=== PATIENT | male | born 1970 | race African-American/Black ===

== ENCOUNTER 2017-01-19 07:19 | Inpatient (IN) | payer BC, OTHER ==
[~2017-01-19] VITALS: Ht 182.9 cm; Wt 113.4 kg
--- NOTE | ~2017-01-19 | 2DMMODE ---
[facility] [address] [place] [address] 2 D/M-MODE ECHOCARDIOGRAM Name: LUPE ESCOTOJEAN CLAUDE Room #: 428-P ADM IN M.R.#: [id number] Admission: 01/19/17 Attend Phys: Tirso Andrade MD Discharge: Date of : 70 Date of Service: 01/19/17 1826 Report #: [id number] THIS REPORT FOR: //name// APPROVED REPORT Study performed: 01/19/2017 12:04:20 EXAM: Comprehensive 2D, Doppler, and color-flow Echocardiogram Patient Location: Echo lab Room #: 428 Status: routine Other Information Study Quality: Adequate Indications Altered mental status. Hx: Corral Palsy, DM, HTN 2D Dimensions RVDd: 36.73 mm LVEF(%): 65.00 (>50%) IVSd: 12.66 (7-11mm) LVOT Diam: 24.61 (18-24mm) LVDd: 41.45 mm PWd: 12.10 (7-11mm) LVDs: 26.86 (25-40mm) Aortic Root: 37.32 mm Suárez's LVEF: 65.00 % Volumes Left Atrial Volume (Systole) Single Plane 4CH: 37.91 mL Single Plane 2CH: 40.78 mL LA ESV Index: 19.00 mL/m2 Aortic Valve AoV Peak Kike.: 1.30 m/s AO Peak Gr.: 6.77 mmHg LVOT Max P.04 mmHg LVOT Max V: 1.23 m/s SARABJIT Vmax: 4.49 cm2 Mitral Valve E/A Ratio: 0.7 MV Decel. Time: 346.69 ms MV E Max Kike.: 0.53 m/s MV A Kike.: 0.72 m/s MV PHT: 100.54 ms [facility] [place] [address] 2 D/M-MODE ECHOCARDIOGRAM Name: REYNA ESCOTO Room #: 428-P [facility] IN .R.#: [id number] Admission: 01/19/17 Attend Phys: Tirso Andrade MD Discharge: Date of : 70 Date of Service: 01/19/17 1826 Report #: [id number] Pulmonary Valve PV Peak Kike.: 0.82 m/s PV Peak Gr.: 2.68 mmHg Pulmonary Vein P Vein S: 1.04 m/s P Vein A: 0.47 m/s P Vein D: 0.44 m/s P Vein A Dur.: 86.5 msec P Vein S/D Ratio: 2.36 Tricuspid Valve TR Peak Kike.: 1.97 m/s RAP Estimate: 5.00 mmHg TR Peak Gr.: 15.45 mmHg PA Pressure: 20.00 mmHg Left Ventricle The left ventricle is normal size. There is normal LV segmental wall motion. Mild concentric left ventricular hypertrophy. Left ventricular systolic function is normal. LVEF is 65%. Mild diastolic dysfunction is present (impaired relaxation pattern). Right Ventricle The right ventricle is normal size. The right ventricular systolic function is normal. Atria The left atrium size is normal. The right atrium size is normal. Aortic Valve The aortic valve is trileaflet Mild aortic regurgitation. There is no aortic valvular stenosis. Mitral Valve The mitral valve is normal in structure. No mitral regurgitation. Tricuspid Valve The tricuspid valve is normal in structure. There is mild tricuspid regurgitation. The right atrial pressure is estimated at 5 mmHg. Estimated PAP is 20mmHg. Pulmonic Valve The pulmonary valve is normal in structure. Mild pulmonic regurgitation. Great Vessels Aortic root is dilated at 4.1cm. The ascending aorta is normal in [facility] [address] [place] [address] 2 D/M-MODE ECHOCARDIOGRAM Name: REYNA ESCOTO Room #: 428-P ADM IN [facility]#: [id number] Admission: 01/19/17 Attend Phys: Tirso Andrade MD Discharge: Date of : 70 Date of Service: 01/19/17 1826 Report #: [id number] size. IVC is normal in size and collapses >50% with inspiration. Pericardium There is no pericardial effusion. <Conclusion> Left ventricular systolic function is normal. There is normal LV segmental wall motion. Mild LVH LVEF is 65%. Mild diastolic dysfunction is present (impaired relaxation pattern). The aortic valve is trileaflet Mild aortic regurgitation, no stenosis. The mitral valve is normal in structure. No mitral regurgitation. Pulmonary artery pressure could not be reliably ascertained There is no pericardial effusion. <ELECTRONICALLY SIGNED> By: Jamal Armstrong MD, FACC 01/19/171825 25 25 Jamal Armstrong MD, FACC /INF
--- NOTE | ~2017-01-19 | EKG ---
[place] [address] [facility] [place] [address] ELECTROCARDIOGRAM REPORT Name: REYNA ESCOTO Room #: 428-P ADM IN M.R.#: [id number] Admission: 01/19/17 Attend Phys: Tirso Andrade MD Discharge: Date of : 70 Report #: [id number] THIS REPORT FOR: //name// [facility] ED Test Date: 2017-01-19 Test Time: 07:38:11 Pat Name: REYNA ESCOTO Department: Room: [facility] Gender: M Director Of Vital Statistics: Trinidad LORENZO : 1970 Requested By: Chandu Guzman Order Number: [id number] MD: Jamal Armstrong Measurements Intervals [place] Rate: 76 P: 37 GA: 152 QRS: -12 QRSD: 83 T: 201 QT: 412 QTc: 464 Interpretive Statements Sinus rhythm Abnormal R-wave progression, early transition Abnormal T, consider ischemia, lateral leads No previous ECG available for comparison Electronically Signed On 01-20-2017 9:09:17 CDT by Jamal Armstrong [email or web address] <ELECTRONICALLY SIGNED> By: Jamal Armstrong MD, [facility] 01/20/17908 7 Jamal Armstrong MD, [facility] /EPI
[2017-01-19 07:23] VITALS: BP 92/54
[2017-01-19 08:21] LABS: HEMATOCRIT 44.6 % (42.0-52.0); HEMOGLOBIN 15.4 gm/dL (14.0-18.0); MCH 31.7 pg (26.0-34.0); MCHC 34.4 g/dL (28.0-37.0); MCV 92.2 fL (80.0-100.0); RBC 4.84 mil/uL (4.50-6.00); RDW 13.4 % (10.5-14.5); WBC 7.8 thou/uL (4.0-11.0)
[2017-01-19 08:28] LABS: DIRECT BILIRUBIN 0.2 mg/dL (<0.1-0.3); SGOT 21 U/L (15-37); SGPT 38 U/L (30-65); TOTAL BILIRUBIN 0.8 mg/dL (<0.1-1.0); TROPONIN-I < 0.04 ng/mL (<0.04-0.07)
[2017-01-19 08:41] LABS: ALKALINE PHOSPHATASE 104 U/L (46-116); ANION GAP 11 mmol/L (7-16); BUN 26 mg/dL (7-18); CALCIUM 9.8 mg/dL (8.5-10.1); CHLORIDE 102 mmol/L (98-107); CO2 28 mmol/L (21-32); CREATININE 3.5 mg/dL (0.7-1.3); GLUCOSE 225 mg/dL (74-106); SODIUM 141 mmol/L (136-145); TOTAL PROTEIN 7.9 g/dL (6.4-8.2)
[2017-01-19] MEDS ORDERED: LISINOPRIL-HCT1 EAC1 PO (08:41)
[2017-01-19 09:16] LABS: URINE BILIRUBIN 2+ (Negative); URINE BLOOD NEGATIVE (Negative); URINE GLUCOSE-RANDOM* NEGATIVE (Negative); URINE KETONES 1+ (Negative); URINE LEUKOCYTES-REFLEX NEGATIVE (Negative); URINE PROTEIN (DIPSTICK) 1+ (Negative); URINE SPECIFIC GRAVITY >= 1.030 (1.003-1.035)
[2017-01-19 09:20] LABS: URINE COLOR DARK YELLOW
[2017-01-19 09:21] LABS: ICTOTEST (BILI CONFIRMATORY) Negative (Negative)
[2017-01-19 09:23] LABS: CASTS None Seen /LPF (None Seen); SQUAMOUS 4-10 Moderate /LPF (0-3); URINE RBC None Seen /HPF (0-2); URINE WBC-REFLEX 0-5 Rare /HPF (0-5)
[2017-01-19 09:24] LABS: CALCIUM OXALATE >10 Many /LPF (None Seen)
[2017-01-19 09:31] LABS: AMP/METHAMP Negative (Negative); BARBITURATES Negative (Negative); BENZODIAZEPINES Negative (Negative); COCAINE Negative (Negative); METHADONE Negative (Negative); OPIATES Negative (Negative); PCP Negative (Negative); THC Negative (Negative)
[2017-01-19 10:54] VITALS: BP 119/71
[2017-01-19 12:25] LABS: TSH 1.326 uIU/mL (0.358-3.740)
[2017-01-19 12:52] LABS: FOLIC ACID 30.4 ng/mL (8.6-58.9)
[2017-01-19 15:43] VITALS: BP 131/75
[2017-01-19 18:10] LABS: FREE T4 1.3 ng/dL (0.82-1.77); PROLACTIN 8.3 ng/mL (4.0-15.2)
[2017-01-19 19:58] VITALS: BP 120/72
[2017-01-20 02:08] LABS: GLYCOHEMOGLOBIN (HGB A1C) 7.1 % (4.8-5.6)
[2017-01-20 03:20] VITALS: BP 126/78
[2017-01-20 06:58] LABS: CALCIUM 8.7 mg/dL (8.5-10.1); MAGNESIUM 1.9 mg/dL (1.8-2.4)
[2017-01-20 07:01] LABS: CREATININE 1.2 mg/dL (0.7-1.3)
[2017-01-20 07:05] LABS: CHOLESTEROL 128 mg/dL (<200); HDL CHOLESTEROL 28 mg/dL (>40); LDL CHOLESTEROL 72 mg/dL (<100); TC:HDL 4.6 Ratio (Not establshd); TRIGLYCERIDE 144 mg/dL (<150); VLDL 29 mg/dL (<40)
[2017-01-20 07:48] VITALS: BP 133/72
[2017-01-20 08:26] LABS: ABSOLUTE NEUTROPHILS 2.4 thou/uL (1.4-8.2); BASOPHILS 0.5 % (0.0-2.0); EOSINOPHILS 1.7 % (0.0-3.0); HEMATOCRIT 40.7 % (42.0-52.0); HEMOGLOBIN 13.7 gm/dL (14.0-18.0); LYMPHOCYTES 47.4 % (24.0-44.0); MCH 31.8 pg (26.0-34.0); MCHC 33.7 g/dL (28.0-37.0); MCV 94.4 fL (80.0-100.0); MONOCYTES 8.8 % (1.0-8.0); PLATELET COUNT 257 thou/uL (150-400); POLYS 41.6 % (36.0-66.0); RBC 4.31 mil/uL (4.50-6.00); RDW 13.4 % (10.5-14.5); WBC 5.7 thou/uL (4.0-11.0)
[2017-01-20 08:41] LABS: MANUAL DIFF NO
[2017-01-20] MEDS ORDERED: NORVASC10 MG PO (09:35)
[2017-01-20] MEDS ORDERED: METFORMIN HCL500 MG PO (09:36)
[2017-01-20 11:51] VITALS: BP 133/72
[2017-01-23 16:08] LABS: ALPHA TOCOPHEROL 11.1 mg/L (5.3-17.5)
== END 2017-01-20 14:13 | disposition home or self-care (01) | DRG 101 ==
LOC: ER 07:19 → 4E 09:37 → EROBS 09:37 → 4E 10:18
PROVIDERS: Emergency Medicine; Hospitalist; Nurse Practitioner; Psychiatry & Neurology Neurology
DX: R56.9 Unspecified convulsions (principal); N17.9 Acute kidney failure, unspecified; R55 Syncope and collapse; I10 Essential (primary) hypertension; J45.909 Unspecified asthma, uncomplicated; G51.0 Bell's palsy; G47.30 Sleep apnea, unspecified; I95.9 Hypotension, unspecified; Z82.49 Family history of ischemic heart disease and other diseases of the circulatory system; Z79.899 Other long term (current) drug therapy; Z83.3 Family history of diabetes mellitus
CPT/HCPCS: 10783